=== PATIENT | male | born 1980 | race Caucasian/White ===

== ENCOUNTER 2016-06-01 16:07 | Emergency (ER) | payer OTHER ==
[2016-06-01 16:14] VITALS: TEMP 98; BMI 24.4
--- NOTE | 2016-06-01 16:23 | PDOC ---
History of Present Illness - General Chief Complaint: Pain, Acute Stated Complaint: FB R ARM Time Seen by Provider: 06/01/16 16:12 - History of Present Illness Initial Comments: 06/01/16 16:21 36-year-old male with a negative past medical history All immunizations, including hepatitis B and tetanus are up-to-date Patient is a dentist, and was working in his office The platform that had the dental drill bits was raised higher than it usually is , and one of the drill bits were sticking up He accidentally rested his elbow down, and a used dental drill bit went into his elbow He initially felt a little tingling in his third and fourth fingers, but continued to work the next 3 hours He noticed that part of the drill bit was broken off, and took his own x-ray, and saw a metallic foreign body around his elbow Prompting him to come to the emergency department Past History - Past Medical History Allergies/Adverse Reactions: Allergies Allergy/AdvReac Type Severity Reaction Status Date / Time No Known Allergies Allergy Verified 06/01/16 16:09 Home Medications: Ambulatory Orders Amoxicillin/Potassium Clav [Augmentin 875-125 Tablet] 1 each PO BID #14 tablet 06/01/16 Other medical history: DENIES - Psycho/Social/Smoking Cessation Hx Anxiety: No Suicidal Ideation: No Smoking History: Never smoked Hx Alcohol Use: No Drug/Substance Use Hx: No Substance Use Type: None *Physical Exam - Vital Signs Last Vital Signs Temp Pulse Resp BP Pulse Ox 98 F 66 18 128/83 100 06/01/16 16:08 06/01/16 16:08 06/01/16 16:08 06/01/16 16:08 06/01/16 16:08 - Physical Exam Comments: 06/01/16 16:26 Physical exam Last Vital Signs Temp Pulse Resp BP Pulse Ox 98 F 66 18 128/83 100 06/01/16 16:08 06/01/16 16:08 06/01/16 16:08 06/01/16 16:08 06/01/16 16:08 Patient is alert and ambulatory and answering questions Right upper extremity- There is a puncture wound of the right elbow, which is clean and not actively bleeding The radial pulses intact Patient is able to make a fist and open his hand without difficulty Sensation is intact in all fingers He has some intermittent subjective tingling of the fourth and fifth fingers ED Treatment Course - RADIOLOGY Radiology Studies Ordered: Category Date Time Status ELBOW-RIGHT [RAD] Stat Radiology 06/01/16 16:17 Ordered Medical Decision Making - Medical Decision Making 06/01/16 16:33 Will check x-rays to locate foreign body, will also give a dose of Unasyn IV, since the drill bit was contaminated with mouth organisms Discussed postexposure prophylaxis, (declines at this time), and gave him the number for the post exposure prophylaxis hotline Given Unasyn and Vanco 06/01/16 19:16 CT scan shows the foreign body is intra-articular in the elbow Spoke to Dr. Banuelos-orthopedic surgeon at [facility] SIGN OUT Case discussed in detail with oncoming Emergency Physician including history, physical exam and ancillary studies. Oncoming Emergency Physician has assumed care for the patient and will complete the evaluation and treatment. Transfer of care to Dr. Cabral at 7 PM awaiting arrangements to be made with orthopedic surgeon at [facility] *DC/Admit/Observation/Transfer Diagnosis at time of Disposition: Foreign body (FB) in soft tissue - Discharge Dispostion Disposition: HOME Condition at time of disposition: Stable - Prescriptions Prescriptions: Amoxicillin/Potassium Clav [Augmentin 875-125 Tablet] 1 each PO BID #14 tablet - Patient Instructions Printed Discharge Instructions: DI for Puncture Wound
[2016-06-01] MEDS ORDERED: AMPICILLIN NA/SULBACTAM NA 3 GM in SODIUM CHLORIDE 100 ML IVPB ONE (16:33)
[2016-06-01] MEDS ORDERED: AMPICILLIN NA/SULBACTAM NA 3 GM VIAL ONE (16:40)
[2016-06-01 16:49] VITALS: BP 123/84; PULSE 70
[2016-06-01] MEDS ORDERED: VANCOMYCIN 1,250 MG in DEXTROSE 5%-WATER - 250 ML IVPB ONE (18:50)
[2016-06-01] MEDS ORDERED: VANCOMYCIN 1,000 MG VIAL (RESTRICTED TO ID ONLY) ONE (18:52)
[2016-06-01] MEDS ORDERED: VANCOMYCIN 500 MG VIAL (RESTRICTED TO ID ONLY) ONE (18:52)
--- NOTE | 2016-06-01 19:40 | PDOC ---
*Physical Exam - Vital Signs Last Vital Signs Temp Pulse Resp BP Pulse Ox 98 F 70 18 123/84 100 06/01/16 16:08 06/01/16 16:48 06/01/16 16:48 06/01/16 16:48 06/01/16 16:48 ED Treatment Course - Medications Given in the ED: ED Medications Discontinued Medications Generic Name Dose Route Start Last Admin Trade Name Nicole PRN Reason Stop Dose Admin Ampicillin Sodium/Sulbactam 100 mls @ 200 mls/hr 06/01/16 16:33 06/01/16 16:48 Sodium 3 gm/ Sodium Chloride IVPB 06/01/16 17:02 200 mls/hr ONCE ONE Administration Medical Decision Making - Medical Decision Making 06/01/16 19:56 Pt has arranged f/u with his orthopedic surgeon tomorrow 8am. He is booked for OR. Stable for DC home after he finishes vancomycin. *DC/Admit/Observation/Transfer Diagnosis at time of Disposition: Foreign body (FB) in soft tissue - Discharge Dispostion Disposition: HOME Condition at time of disposition: Stable Admit: No - Prescriptions Prescriptions: Amoxicillin/Potassium Clav [Augmentin 835125 Tablet] 1 each PO BID #14 tablet - Patient Instructions Printed Discharge Instructions: DI for Puncture Wound
== END 2016-06-01 21:03 | disposition home or self-care (01) ==
LOC: FER 16:07
DX: S51.041A Puncture wound with foreign body of right elbow, initial encounter (principal); W22.8XXA Striking against or struck by other objects, initial encounter; Y93.89 Activity, other specified; Y92.531 Health care provider office as the place of occurrence of the external cause; Y99.0 Civilian activity done for income or pay
CPT/HCPCS: 73070-TC-RT; 73200-TC-RT; 99282-25